=== PATIENT | female | born 1960 | race Hispanic/Latino ===

== ENCOUNTER 2022-11-03 16:09 | Emergency (ER) | payer OTHER ==
[~2022-11-03] VITALS: Ht 162.6 cm; Wt 86.2 kg
[~2022-11-03 16:09] MED LIST: LEVOTHYROXINE75 MCG PO; TAMOXIFEN CITRA20 MG PO
[2022-11-03] MEDS ORDERED: VITAMIN D310 MC1 PO (17:06)
[2022-11-03] MEDS ORDERED: METRONIDAZOLE500 MG PO (19:22)
[2022-11-03] MEDS ORDERED: CIPRO500 MG PO (19:22)
== END 2022-11-03 19:40 | disposition home or self-care (01) ==
LOC: ED 16:09
DX: K57.92 Diverticulitis of intestine, part unspecified, without perforation or abscess without bleeding (principal); Z88.0 Allergy status to penicillin; Z88.8 Allergy status to other drugs, medicaments and biological substances; Z79.899 Other long term (current) drug therapy
CPT/HCPCS: 36415; 74177; 80053; 81001; 83690; 85025; 99284-25; Q9967